=== PATIENT | female | born 1955 | race Hispanic/Latino ===

== ENCOUNTER 2021-09-13 12:11 | Outpatient (CLI) | payer MEDICARE ==
[2021-09-13 13:28] LABS: Hemoglobin 9.7 g/dL (12.0-15.5); Mean Corpuscular HGB CONC 32.6 g/dL (32.0-36.0); Mean Corpuscular Hemoglobin 29.8 pg (27.0-33.0); Mean Corpuscular Volume 91.7 fl (81.6-98.3); Mean Platelet Volume 10.2 fl (7.4-10.4); Platelet Count 249 10x3/uL (150-450); RBC Distribution Width 14.5 % (11.5-14.5); Red Blood Cell (RBC) Count 3.25 10x6/uL (3.90-5.03); White Blood Cell (WBC) Count 7.1 10x3/uL (3.5-10.5)
[2021-09-13 13:48] LABS: Anion Gap 12 mmol/L (10-20); BUN (Urea Nitrogen) 14 mg/dL (9.8-20.1); Calc. Creatinine Clearance 0 mL/min (70-130); Carbon Dioxide 24 mmol/L (23-31); Chloride 110 mmol/L (98-107); Glucose 113 mg/dL (80-115); Potassium 4.9 mmol/L (3.5-5.1); Sodium 141 mmol/L (136-145)
[2021-09-13 20:07] LABS: Hemoglobin A1c 4.7 % (4.0-6.0)
[2021-09-14 00:09] LABS: SARS-CoV-2 PCR by NAA Not Detected (NotDetected)
== END 2021-09-13 12:12 | disposition home or self-care (01) ==
LOC: CSHLAB 12:11
PROVIDERS: ATTEND Surgery
DX: Z01.818 Encounter for other preprocedural examination (principal); Z20.822 Contact with and (suspected) exposure to COVID-19; C20 Malignant neoplasm of rectum
CPT/HCPCS: 80048; 83036; 85027; 93005; 93010; U0003; U0005

== ENCOUNTER 2021-09-14 11:07 | Inpatient (IN) | payer MEDICARE ==
[2021-09-14] MEDS ORDERED: Lidocaine 1% MPF 2 ML VIAL ONE (11:38)
[2021-09-14] MEDS ORDERED: PROPOFOL 20 ML ONE ×2 (12:46→14:09)
[2021-09-14] MEDS ORDERED: EPINEPHrine 1 MG/ML AMP ONE (12:46)
[2021-09-14] MEDS ORDERED: Fentanyl 250 MCG/5 ML VIAL ONE (12:47)
[2021-09-14] MEDS ORDERED: Ondansetron PF 4 MG/2 ML Vial ONE ×2 (12:47→15:08)
[2021-09-14] MEDS ORDERED: Bupivacaine PF 0.5% 30 ML VIAL ONE (12:47)
[2021-09-14] MEDS ORDERED: Lidocaine 1% PF 5 ML VIAL ONE (12:47)
[2021-09-14] MEDS ORDERED: Midazolam HCl 2 mg/2 ml Vial ONE (12:47)
[2021-09-14] MEDS ORDERED: Rocuronium Bromide 10 MG/ML (10ML VIAL) ONE (12:47)
[2021-09-14] MEDS ORDERED: Dexamethasone 20 MG/5 ML VIAL ONE (12:47)
[2021-09-14] MEDS ORDERED: Glycopyrrolate 0.2 MG/ML 5 ML SYRINGE ONE (12:48)
[2021-09-14] MEDS ORDERED: ceFAZolin 2 GM/Dextrose 50 ML IVPB ONE (13:06)
[2021-09-14] MEDS ORDERED: Fentanyl 100 MCG/2 ML VIAL ONE ×2 (14:40→15:03)
[2021-09-14] MEDS ORDERED: Morphine 4 MG/ML VIAL SLOW IVP PRN (14:46)
[2021-09-14] MEDS ORDERED: Acetaminophen 325 MG TAB PO PRN (14:46)
[2021-09-14] MEDS ORDERED: Ondansetron PF 4 MG/2 ML Vial IVP PRN (14:46)
[2021-09-14] MEDS ORDERED: HYDROcodone/Acetaminophen 5/325 mg Tablet PO PRN (14:46)
[2021-09-14 15:51] VITALS: BMI 34.7
[2021-09-14] MEDS ORDERED: Enoxaparin Sodium 40 MG/0.4 ML SYRINGE SC SCH (16:00)
[2021-09-14] MEDS: Lactated Ringer's 1,000 ML IV SCH (16:41)
[2021-09-14] MEDS: Morphine 2 MG/ML VIAL SLOW IVP PRN (20:03)
[2021-09-15] MEDS: Morphine 2 MG/ML VIAL SLOW IVP PRN ×4 (01:00→17:36)
[2021-09-15] MEDS: hydrALAZINE 20 MG/ML VIAL SLOW IVP PRN (01:25)
[2021-09-15] MEDS: Lactated Ringer's 1,000 ML IV SCH ×2 (06:39→10:18)
[2021-09-15] MEDS: Levothyroxine Sodium 50 MCG TAB PO SCH (06:39)
[2021-09-15] MEDS: Losartan 25 MG TAB PO SCH (09:55)
[2021-09-15] MEDS: Escitalopram Oxalate 10 mg Tablet PO SCH (09:55)
[2021-09-15] MEDS: Hydrochlorothiazide 25 MG TAB PO SCH (09:56)
[2021-09-15] MEDS: HYDROcodone/Acetaminophen 5/325 mg Tablet PO PRN ×2 (14:58→18:52)
[2021-09-16] MEDS: Levothyroxine Sodium 50 MCG TAB PO SCH (05:39)
[2021-09-16] MEDS: Morphine 2 MG/ML VIAL SLOW IVP PRN ×2 (05:44→09:28)
[2021-09-16] MEDS: HYDROcodone/Acetaminophen 5/325 mg Tablet PO PRN (06:02)
[2021-09-16] MEDS: Losartan 25 MG TAB PO SCH (09:29)
[2021-09-16] MEDS: Escitalopram Oxalate 10 mg Tablet PO SCH (09:29)
[2021-09-16] MEDS: Hydrochlorothiazide 25 MG TAB PO SCH (09:41)
[2021-09-16 12:09] VITALS: BP 181/74
[2021-09-16] MEDS: hydrALAZINE 20 MG/ML VIAL SLOW IVP PRN (12:09)
[2021-09-16 12:58] VITALS: TEMP 98.8
== END 2021-09-16 13:33 | disposition home health service (06) | DRG 330 ==
LOC: CSHSDC 11:07 → CSHTELE 15:48
PROVIDERS: ADMIT Surgery; ATTEND Surgery
PROC: 0D1N4Z4 Bypass Sigmoid Colon to Cutaneous, Percutaneous Endoscopic Approach (ICD-10-PCS; principal; 2021-07-17)
DX: N82.3 Fistula of vagina to large intestine (principal); C21.0 Malignant neoplasm of anus, unspecified; I10 Essential (primary) hypertension; K43.2 Incisional hernia without obstruction or gangrene
CPT/HCPCS: 36416; 93005; 93010; J0171; J0360; J0690; J1100; J1650; J2250; J2270; J2405; J2704; J3010; J7120; S0020

== ENCOUNTER 2022-02-25 05:59 | Day surgery (SDC) | payer MEDICARE ==
[2022-02-24 08:51] VITALS: BMI 30.7
[2022-02-25] MEDS ORDERED: PROPOFOL 40 ML ONE (07:13)
== END 2022-02-25 08:45 | disposition home or self-care (01) ==
LOC: CSHSDC 05:59
PROVIDERS: ATTEND Surgery
PROC: 0DJD8ZZ Inspection of Lower Intestinal Tract, Via Natural or Artificial Opening Endoscopic (ICD-10-PCS; principal; 2022-02-25)
DX: C21.1 Malignant neoplasm of anal canal (principal); D50.9 Iron deficiency anemia, unspecified; K29.70 Gastritis, unspecified, without bleeding; F32.A Depression, unspecified; Z85.6 Personal history of leukemia; Z79.899 Other long term (current) drug therapy; Z98.51 Tubal ligation status; Z98.890 Other specified postprocedural states
CPT/HCPCS: J2704